=== PATIENT | male | born 1975 | race Caucasian/White ===

== ENCOUNTER 2024-06-12 15:19 | Outpatient (CLI) | payer BC, SELFPAY ==
--- NOTE | ~2024-06-12 | CT_ITS ---
EXAMINATION: CT abdomen pelvis wo con DATE: 06/12/2024 15:33 INDICATION: Upper abdominal mass TECHNIQUE: Computed tomography (CT) of the abdomen and pelvis was performed without intravenous contr ast. Automated exposure control and iterative reconstruction technique were employed. The dose-length product was 946.76 mGy-cm. A BB was placed over the site of concern COMPARISON: 09/08/2015 FINDINGS: Lung bases are clear. Heart size is normal. No pericardial or pleural effusion. Liver, gallbladder, s pleen, pancreas and bilateral adrenal glands are normal. 7 mm cyst at the upper pole of the right kid liana. Bilateral nephrolithiasis with 3 mm stone at the posterior right kidney and three additional pun ctate 1 mm stones in the right kidney and a single 1 mm stone in the left kidney. Tiny fat-containing umbilical hernia. Bowels including the appendix are normal. Bladder is normal. Small fat-containing left inguinal hernia. No free intraperitoneal gas or fluid. No pathologically enlarged abdominal or p elvic lymphadenopathy. L4-S1 interspace pleural effusion with interbody bone graft cages and anterior plate-screw fixation. A BB indicating the site of concern is positioned slightly inferior to the lef t of the xiphoid process. No underlying mass identified. IMPRESSION: 1. No etiology identified for the reported palpable abnormality of concern Reviewed, dictated and finalized at location A.
== END 2024-06-12 15:20 ==
LOC: MICIMG 15:20
PROVIDERS: PCP Family Medicine; Visit Provider Student in an Organized Health Care Education/Training Program
DX: R19.00 Intra-abdominal and pelvic swelling, mass and lump, unspecified site (principal)
CPT/HCPCS: 74176

== ENCOUNTER 2024-07-29 20:34 | Emergency (ER) | payer BC, SELFPAY ==
--- NOTE | ~2024-07-29 | CT_ITS ---
Non-contrast CT scan of the Abdomen and Pelvis Clinical indication: Right flank pain Technique: 2.5 mm axial scans were obtained through the abdomen and pelvis without intravenous or or al contrast. Dose reduction technique was used on this scan by utilizing automated exposure control a nd iterative reconstruction technique. The dose-length product (DLP) was 372.67 mGy-cm. COMPARISON: 06/12/2024 Findings: Images through the lung bases reveal stable 4 mm right middle lobe pulmonary nodule there is mild right basilar atelectatic change. There is a 4 mm stone at the distal right ureter (axial image 151), with minimal right hydroureterone phrosis to this level. No other renal or ureteral stones are seen. No left hydronephrosis. The liver, spleen, pancreas, gallbladder, and adrenals appear normal. There is no aortic aneurysm. There is no evidence of bowel obstruction. Images through the pelvis were performed. There is no evidence of ascites or lymphadenopathy. Urinary bladder unremarkable. No pelvic mass seen. Impression: 4 mm distal right ureteral stone with minimal right hydroureteronephrosis. Reviewed, dictated and finalized at location M. Impression: 4 mm distal right ureteral stone with minimal right hydroureteronephrosis.
[2024-07-29 20:55] LABS: Basophils Absolute Auto 0.1 K/mm3 (0.0-0.1); Basophils Percent Auto 0.6 % (0.2-1.2); Eosinophils Absolute Auto 0.2 K/mm3 (0-0.3); Eosinophils Percent Auto 2.3 % (0-4.4); Hematocrit 44.5 % (42.0-52.0); Hemoglobin 15.2 g/dL (14.0-18.0); Immature Granulocyte Absolute 0.04 K/mm3 (0.00-0.031); Immature Granulocyte Percent A 0.4 % (0-0.5); Lymphocytes Absolute Auto 3.08 K/mm3 (0.9-3.2); Lymphocytes Percent Auto 29.4 % (18.3-44.2); Mean Corpuscular HGB Conc 34.2 g/dl (32-36); Mean Corpuscular Volume 87.8 fl (80-100); Mean Platelet Volume 9.2 fl (7.4-10.4); Monocytes Absolute Auto 0.6 K/mm3 (0.1-0.6); Monocytes Percent Auto 6.1 % (2.6-8.5); Neutrophils Absolute Auto 6.4 K/mm3 (1.3-6.7); Neutrophils Percent Auto 61.2 % (45.5-73.1); Platelet Count Result 247 k/mm3 (150-375); Red Blood Count 5.07 M/mm3 (4.6-6.20); Red Cell Distribution Width 14.6 % (11.5-14.5); White Blood Count 10.5 K/mm3 (4.5-10.0)
[2024-07-29 21:04] LABS: Alanine Aminotransferase 57 U/L (6-50); Albumin Level 4.6 g/dL (3.5-5.1); Alkaline Phosphatase 73 U/L (38-126); Anion Gap 10 mmol/L (4-12); Aspartate Amino Transferase 42 U/L (17-59); Bilirubin,Total 0.5 mg/dL (0.2-1.3); Blood Urea Nitrogen 15 mg/dL (9-20); Calcium 9.1 mg/dL (8.4-10.2); Carbon Dioxide 22 mmol/L (22-30); Chloride 106 mmol/L (98-107); Estimated CRCL calculation 83 ml/min; Estimated Glomerular Filt Rate > 60; Glucose 125 mg/dL (65-110); Potassium 3.9 mmol/L (3.4-5.0); Sodium 138 mmol/L (137-145)
[2024-07-29 21:44] LABS: Add Urine Microscopic? YES; Appearance Urine Cloudy (Clear); Bacteria Urine None Seen /hpf; Bilirubin Urine Negative (Negative); Blood Urine 3+ (Negative); Color Urine Yellow (Yellow); Glucose Urine UA Negative (Negative); Ketones Urine Trace mg/dL (Negative); Leukocyte Esterase Ur Negative LEU/UL (Negative); Nitrate Urine Negative (Negative); Non Pathogenic Casts 0-2; Protein Urine 1+ mg/dL (Negative); RBC Urine >100 /hpf (0-2); Specific Grav Ur 1.025 (1.001-1.035); Squamous Epithelial Cell Urine None Seen /hpf (Few); WBC Urine 0-5 /hpf (0-3); pH Urine 5.5 (5.0-9.0)
[2024-07-29] MEDS: ONDANSETRON INJ 4 MG/2 ML VIAL IV PUSH (22:31)
[2024-07-29] MEDS: MORPHINE SULFATE (*CRX) 4 MG/ML INJ IV PUSH (22:31)
[2024-07-29] MEDS: SODIUM CHLORIDE 0.9% IV 1,000 ML 999 ML IV CONT (22:31)
[2024-07-30 00:16] VITALS: BP 133/87; PULSE 77; RESP 18; O2SAT 99
--- NOTE | 2024-07-30 01:27 | ED.BACK ---
HPI - Back Pain/Injury General Chief Complaint: Back Pain/Injury Stated Complaint: right flank pain Time Seen by Provider: 07/29/24 21:12 History of Present Illness HPI Narrative: 49-year-old male presents to emergency department for right flank pain that radiates to his lower abdomen that started at 5:30 a.m. in the evening. Patient has history of kidney stones. He denies dysuria or gross hematuria. He reports associated nausea and vomiting. Denies fever. Related Data Allergies Allergy/AdvReac Type Severity Reaction Status Date / Time levofloxacin Allergy Unknown Anaphylaxis Verified 07/29/24 20:38 Contrast Media Allergy Unknown Unknown Uncoded 07/29/24 20:38 Review of Systems Review of Systems: All systems reviewed & are unremarkable except as noted in HPI and below PMFSH Past Medical History Medical History Ulcer Surgical History Surgical History Previous back surgery 2006, lumbar fusion Family History Family History Mother Patient's mother is in good health Cancer Father Patient's father is in good health Social History Social History Smoking status: Former smoker Smoking end date: 10/24/16 Alcohol intake: never Lack of Transportation: No Lack of Food: Never True Current Housing: I Have Housing Concerned About Future Housing: No Difficulty Paying Gas/Electric Bills: No Difficulty Paying for Meds: No Currently Unemployed: No Education: Decline to Answer Difficulty w/ Childcare or Family Care: No Living arrangements: with family Occupation/Education: occupation Spiritual care concerns: No Agree to blood products: Yes Exam Narrative: GENERAL: writhing in bed, appears to be in pain HEAD: Normocephalic, atraumatic. EYES: EOMI. ENT: Nares clear, no rhinorrhea or epistaxis. Mucous membranes moist. NECK: Supple. CHEST: Clear to auscultation. No respiratory distress. HEART: Regular rate and rhythm. No murmur heard. Normal peripheral pulses. ABDOMEN: normoactive bowel sounds. Abdomen soft with tenderness in the right lower quadrant with no rebound, guarding or rigidity. Right CVA tenderness. EXTREMITIES: Normal range of motion. No edema. SKIN: Warm, dry, no rash. NEURO: No focal deficits. Alert and oriented x3 Course Vital Signs Vital signs: Vital Signs Pulse Rate 77 07/30/24 00:16 Respiratory Rate 18 07/30/24 00:16 Blood Pressure 133/87 07/30/24 00:16 Pulse Oximetry 99 07/30/24 00:16 Pulse Rate 77 07/30/24 00:16 Respiratory Rate 18 07/30/24 00:16 Blood Pressure 133/87 07/30/24 00:16 Pulse Oximetry 99 07/30/24 00:16 MDM - Back Pain/Injury MDM Narrative Medical decision making narrative: 49-year-old male with history of kidney stones presents to the emergency department for right flank pain that radiates to his abdomen with associated N/V since 5:30 p.m. triage vitals are stable. He is afebrile nontoxic appearing. He is writhing around in exam bed secondary to pain. Concern for ureteral stone. Will provide IV fluids, morphine and Zofran and obtain lab work, UA and CT without contrast. CBC with mild leukocytosis of 10.5. Chemistries unremarkable, normal creatinine at 1.1. UA with large hematuria, no WBC's or leuk esterase. CT abdomen pelvis shows an obstructing 3 mm right distal ureteral stone with mild fullness of the right collecting system. Patient was updated on workup. He received IV fluids, Zofran and morphine with some improvement. Patient did have an episode of vomiting after receiving Zofran and states he is still very uncomfortable. Will provide another dose of morphine and Zofran and re-evaluate. Patient reports improvement after 2nd round of morphine and Zofran
[2024-07-30] MEDS: ONDANSETRON INJ 4 MG/2 ML VIAL IV PUSH (01:34)
[2024-07-30] MEDS: MORPHINE SULFATE (*CRX) 4 MG/ML INJ IV PUSH (01:34)
[2024-07-30] MEDS: KETOROLAC 15 MG/ML VIAL (*BKC) IV PUSH (02:05)
[2024-07-30 02:14] VITALS: BP 141/76; PULSE 79; RESP 18; TEMP 36.4; O2SAT 99
== END 2024-07-30 02:15 | disposition home or self-care (01) ==
PROVIDERS: Emergency Medicine; Emergency Provider Physician Assistant; PCP Family Medicine
DX: N20.1 Calculus of ureter (principal); Z87.891 Personal history of nicotine dependence
CPT/HCPCS: 36415; 74176; 80053; 81001; 85025; 96361; 96374; 96375; 96376; 99284; J1885; J2270; J2405; J7030